=== PATIENT | female | born 1965 ===

== ENCOUNTER → 2023-07-24 10:47 | Outpatient (REF) | payer BC, SELFPAY | LOC: HWRCS 10:47 | PROVIDERS: ATTENDING PHYSICIAN Nurse Practitioner Family | DX: R06.09 Other forms of dyspnea (principal) | CPT/HCPCS: 93306 ==

== ENCOUNTER → 2023-08-01 10:59 | Outpatient (REF) | payer BC, SELFPAY | LOC: DHCBC/DCA 10:59 | PROVIDERS: ATTENDING PHYSICIAN Nurse Practitioner Family | DX: R06.09 Other forms of dyspnea (principal) | CPT/HCPCS: 78452; 93017; A9500; J2785 ==